=== PATIENT | female | born 1985 | race Caucasian/White ===

== ENCOUNTER 2022-10-10 09:00 | Outpatient (RCR) | payer OTHER, SELFPAY | END 2023-05-17 23:59 | disposition home or self-care (01) | PROVIDERS: PCP Family Medicine; Visit Provider Family Medicine | DX: M79.672 Pain in left foot (principal); M24.875 Other specific joint derangements left foot, not elsewhere classified; Z51.89 Encounter for other specified aftercare | CPT/HCPCS: 97140; 97161 ==

== ENCOUNTER 2022-10-18 19:20 | Outpatient (CLI) | payer OTHER, SELFPAY ==
[2022-10-18 11:54] LABS: Hemoglobin A1C* 5.3 % (0-5.6)
[2022-10-18 18:13] LABS: Albumin* 4.7 g/dL (3.3-5.0)
[2022-10-18 18:16] LABS: Alkaline Phosphatase* 49 U/L (40-150); Aspartate Amino Transferase* 25 U/L (12-35); Bilirubin Direct* 0.2 mg/dL (0.0-0.5); Bilirubin Total* 1.1 mg/dL (0.1-1.5); Cholesterol* 191 mg/dL (90-199); HDL Cholesterol* 45 mg/dL (>=50); LDL Cholesterol Calculated 122 mg/dL (<100); Total Protein* 7.4 g/dL (6.0-8.3); Triglycerides* 121 mg/dL (40-149)
[2022-10-18 18:17] LABS: Alanine Aminotransferase* 20 U/L (4-35)
[2022-10-20 17:25] LABS: DHEAS 244 ug/dL (61-337)
[2022-10-20 19:46] LABS: Prolactin 3.8 ng/mL (2.8-29.2)
[2022-10-23 17:40] LABS: Sex Hormone Binding Globulin 25 nmol/L (25-122); Testosterone, Free LC-MS/MS 5.9 pg/mL (1.3-9.2); Testosterone, LC-MS/MS 31 ng/dL (9-55)
== END 2022-10-18 19:21 | disposition home or self-care (01) ==
PROVIDERS: PCP Family Medicine; Visit Provider Physician Assistant
DX: Z01.419 Encounter for gynecological examination (general) (routine) without abnormal findings (principal); N64.52 Nipple discharge; R10.10 Upper abdominal pain, unspecified; L68.0 Hirsutism; E66.9 Obesity, unspecified; F41.9 Anxiety disorder, unspecified; Z13.6 Encounter for screening for cardiovascular disorders; Z13.1 Encounter for screening for diabetes mellitus
CPT/HCPCS: 80061; 80076; 82627; 83036; 84146; 84270; 84402; 84403; 84443

== ENCOUNTER 2023-07-27 09:54 | Outpatient (CLI) | payer OTHER, SELFPAY | END 2023-07-27 09:55 | disposition home or self-care (01) | PROVIDERS: PCP Physician Assistant Medical; Visit Provider Physician Assistant | DX: L68.0 Hirsutism (principal) | CPT/HCPCS: 80048 ==

== ENCOUNTER 2023-08-31 10:23 | Outpatient (RCR) | payer OTHER, SELFPAY | END 2023-11-26 15:56 | disposition home or self-care (01) | PROVIDERS: PCP Physician Assistant Medical; Visit Provider Family Medicine | DX: M72.2 Plantar fascial fibromatosis (principal); M54.50 Low back pain, unspecified; M25.551 Pain in right hip; Z51.89 Encounter for other specified aftercare | CPT/HCPCS: 97110; 97162 ==

== ENCOUNTER 2023-09-07 09:59 | Outpatient (CLI) | payer OTHER, SELFPAY ==
--- NOTE | 2023-09-07 10:15 | CRLHL7_ITS ---
For Patients: As a result of the Cures Act, medical imaging exams and procedure reports are released immediately into your electronic medical record. You may view this report before your referring provider. If you have questions, please contact your health care provider. INDICATION: Vision changes. History of Chiari malformation. TECHNIQUE: Brain MRI without contrast. The following sequences were obtained: Sagittal T1 weighted sequence. DWI and ADC mapping sequences. Axial FLAIR and FILOMENA T2 weighted sequences. Susceptibility or GRE sequence. COMPARISON: Brain MRI from 09/20/2010. FINDINGS: No evidence of acute ischemia. No evidence of acute or chronic intracranial blood products. No pathologic intracranial signal abnormality. No mass effect or herniation. No hydrocephalus or extra-axial collections. The pituitary gland, parasellar structures and optic chiasm are normal. Slightly pointed cerebellar tonsils protrude 5-6 millimeters below the foramen magnum. Effacement of CSF at the foramen magnum. No mass effect upon the brainstem. All the major intracranial vascular structures demonstrate normal flow-related signal. The orbital contents are normal. No calvarial or skull base marrow replacing process. No obstructive sinus disease. No extracranial soft tissue findings. IMPRESSION: 1. Stable mild Chiari 1 malformation. Similar degree of tonsillar protrusion below the foramen magnum. No new mass effect upon the brainstem. No hydrocephalus. 2. No other significant intracranial pathology. Dictated by Bear Nava MD @ 09/07/2023 1:21:55 PM (Electronically Signed)
== END 2023-09-07 10:00 | disposition home or self-care (01) ==
PROVIDERS: PCP Physician Assistant; Visit Provider Physician Assistant
DX: H53.9 Unspecified visual disturbance (principal); Z86.69 Personal history of other diseases of the nervous system and sense organs
CPT/HCPCS: 70551

== ENCOUNTER 2023-10-09 09:00 | Outpatient (RCR) | payer OTHER, SELFPAY | END 2024-02-06 23:59 | disposition home or self-care (01) | PROVIDERS: PCP Physician Assistant; Visit Provider Physician Assistant | DX: N39.3 Stress incontinence (female) (male) (principal); M54.50 Low back pain, unspecified; M25.551 Pain in right hip; M72.2 Plantar fascial fibromatosis; M62.89 Other specified disorders of muscle; R29.898 Other symptoms and signs involving the musculoskeletal system; Z51.89 Encounter for other specified aftercare | CPT/HCPCS: 97110; 97140; 97162 ==

== ENCOUNTER 2023-10-19 18:59 | Emergency (ER) | payer OTHER, SELFPAY ==
[2023-10-19] VITALS (8 sets, daily range): BP systolic 109–126; BP diastolic 71–90; PULSE 72–87; RESP 22; TEMP 36.9; O2SAT 97–98; BMI 31.3
[2023-10-19] MEDS: 0.9 % SODIUM CHLORIDE 1000 ml 1,000 ML IV (20:05)
[2023-10-19] MEDS: ONDANSETRON 2 MG/ML inj 4 MG IVP (20:05)
[2023-10-19 20:27] LABS: Lactate* 0.7 mmol/L (0.5-1.9)
[2023-10-19 20:31] LABS: Basophils Absolute Auto 0.01 K/uL (0.00-0.30); Basophils Percent Auto 0.1 % (0.0-3.0); Eosinophils Absolute Auto 0.17 K/uL (0.00-0.50); Hematocrit 43.8 % (33.0-51.0); Hemoglobin* 15.1 gm/dL (12.0-16.0); Immature Granulocytes Abs Auto 0.03 K/uL (0.00-0.30); Immature Granulocytes Pct Auto 0.4 %; Lymphocytes Absolute Auto 1.72 K/uL (0.90-2.90); Lymphocytes Percent Auto 20.7 % (20-44); Mean Corpuscular HGB Conc 35 gm/dL (32-36); Mean Corpuscular Hemoglobin 29 pg (26-34); Mean Corpuscular Volume 84 fL (80-100); Monocytes Percent Auto 6.3 % (0.0-11.0); Neutrophils Absolute Auto 5.87 K/uL (1.7-7.0); Neutrophils Percent Auto 70.5 % (42.0-72.0); Platelet Count* 207 K/uL (140-440); RDW Coefficient of Variation % 11.7 % (11.5-15.5); Red Blood Count 5.19 m/uL (4.00-5.20); White Blood Count* 8.32 K/uL (4.50-11.00)
[2023-10-19 20:33] LABS: Albumin* 4.7 g/dL (3.3-5.0); Chloride* 102 mmol/L (96-114); Sodium* 135 mmol/L (135-149)
[2023-10-19 20:34] LABS: Potassium* 3.8 mmol/L (3.6-5.1)
[2023-10-19 20:36] LABS: Alkaline Phosphatase* 47 U/L (40-150); Amylase* 87 U/L (18-89); Anion Gap 11 mEq/L (7-15); Aspartate Amino Transferase* 20 U/L (12-35); Bilirubin Total* 1.5 mg/dL (0.1-1.5); Blood Urea Nitrogen* 16 mg/dL (5-24); Carbon Dioxide* 22 mmol/L (20-32); Creatinine* 0.8 mg/dL (0.5-1.5); Est. Creatinine Clearance* 94.54; Estimated Glomerular Filt Rate 98 ml/min; Glucose* 90 mg/dL (60-115); Total Protein* 7.9 g/dL (6.0-8.3)
[2023-10-19 20:37] LABS: Alanine Aminotransferase* 18 U/L (4-35); Calcium* 8.9 mg/dL (8.4-10.6)
[2023-10-19 20:38] LABS: Slide Review Reflex No
--- NOTE | 2023-10-19 20:44 | CRLHL7_ITS ---
For Patients: As a result of the Cures Act, medical imaging exams and procedure reports are released immediately into your electronic medical record. You may view this report before your referring provider. If you have questions, please contact your health care provider. INDICATION: Right upper quadrant pain. TECHNIQUE: Ultrasound abdomen limited. Sonographic images of the right upper quadrant were obtained using tirado-scale and color Doppler images. COMPARISON: CT abdomen/pelvis dated 03/09/2020 FINDINGS: Liver: Increased echogenicity of the liver parenchyma. The liver measures 16.1 cm. Bile ducts: Intrahepatic bile ducts are not dilated. The common bile duct measures 0.4 cm. Gallbladder: Gallbladder sludge. No significant gallbladder wall thickening, or pericholecystic fluid identified. Negative sonographic Clay`s sign. Pancreas: Pancreas is poorly visualized secondary to acoustic shadowing from overlying/adjacent bowel gas. Right kidney: The right kidney measures 10.8 cm in length. No renal calculi or significant hydronephrosis is identified. IMPRESSION: 1. Gallbladder sludge. No secondary signs of acute cholecystitis. 2. Increased echogenicity of the liver parenchyma, compatible with diffuse hepatic steatosis. Dictated by Mark Orozco MD @ 10/19/2023 10:00:43 PM (Electronically Signed)
--- NOTE | 2023-10-19 20:46 | ED_ITS ---
HPI - Abdominal Pain General Chief Complaint: Abdominal Pain Stated Complaint: Abdominal pain Time Seen by Provider: 10/19/23 20:22 History of Present Illness HPI narrative: Patient is a 38-year-old woman who presents with approximately 12 hours of right upper quadrant and periumbilical pain. She had worsening her symptoms when she ate a banana this afternoon. The pain seems to go through to her back. She has had no fevers no chills no night sweats no dysuria. She states she has had similar symptoms previously and had a negative CT scan the past. She has had no blood in her stool no reflux symptoms she did have some nausea and vomiting but that has resolved with hydration here in the emergency room. Patient states she is not . Related Data Previous Rx's Medication Instructions Recorded spironolactone 50 mg tablet 50 mg PO BID #60 tabs 07/27/23 Allergies Allergy/AdvReac Type Severity Reaction Status Date / Time latex Allergy Mild Rash Verified 07/27/23 09:26 Review of Systems Status of ROS Reports: 10 or more systems reviewed and unremarkable except as noted in History and below [facility] Medical History History of eating disorder ?Z86.59 - Personal history of other mental and behavioral disorders (ICD-10) Anxiety ?F41.9 - Anxiety disorder, unspecified (ICD-10) Depression ?F32.A - Depression, unspecified (ICD-10) Surgical History History of tonsillectomy and adenoidectomy ?Z90.89 - Acquired absence of other organs (ICD-10) History of third molar tooth extraction ?K08.409 - Partial loss of teeth, unspecified cause, unspecified class (ICD- 10) History of section ?Z98.891 - History of uterine scar from previous surgery (ICD-10) Family History Family/Other Breast cancer Kidney disease Alcohol dependence Mother Brain disorder High cholesterol Osteoporosis Anxiety Father Kidney disease High blood pressure High cholesterol Diabetes Thyroid disease Maternal Grandmother Neuroendocrine tumor 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 Non-smoker What is your current living situation?: I presently have a place to live Problems where you live: no known problems In the past 12 months, utilities in danger of being shut off: no In past 12 months, lack of transportation kept you from medical appts, meetings, work, or getting things needed for daily living: no How hard is it for you to pay for the very basics like food, housing, medical care, and heating: not very hard In the past 12 mos, have been you worried that your food would run out before you had money to buy more?: never true In the past 12 mos, the food you bought just didn't last and you didn't have money to buy more?: never true Smoking Status: Never smoker How often do you have a drink containing alcohol: monthly or less How often do you have six or more drinks on one occasion: Never AUDIT-C Alcohol total score: 1 Non-prescribed substance use: denies use How often does anyone, including family, friends and others, physically hurt you : never How often does anyone, including family, friends and others, insult or talk down to you: never How often does anyone, including family, friends and others, threaten you with harm: never How often does anyone, including family, friends and others, scream or curse at you: never Little interest or pleasure in doing things: not at all Feeling down, depressed, or hopeless: several days Exam Narrative: Exam Narrative: EXAM GENERAL: Patient appears comfortable and well. EYES: No scleral icterus. ENT: Tympanic membranes and oropharynx normal. THYROID: no thyroid nodules or thyromegaly. LYMPH: No supraclavicular or cervical lymphadenopathy. SKIN: Visible skin seen during exam normal or with benign process only. EXT: No dependent lower extremity pedal edema. HEART: Regular rate and rhythm with no murmurs, rubs, or gallops. LUNGS: Clear to auscultation bilaterally with no crackles or wheezes. ABD: Soft, non tender, non distended. PSYCH: Good eye contact, speech is not pressured. Const: Vital Signs, click to edit/add: Vital Signs - 24 hr 10/19/23 19:17 10/19/23 20:08 10/19/23 20:09 Temperature 98.4 F Pulse Rate 83 81 Pulse Rate [Right Radial] 87 Respiratory Rate 22 Blood Pressure 109/71 Blood Pressure [Ri ght Upper Arm] 126/90 H Pulse Oximetry 97 97 98 Oxygen Delivery Me thod Room Air Course Course ED Course: Patient seen examined. Normal saline given. Zofran given IV. I did review her CBC CMP amylase all normal. I did recommend CT of the abdomen pelvis which he declines. She is willing to have an ultrasound of her right upper quadrant which we will proceed with. Vital Signs Vital signs: Initial Vital Signs Temperature 98.4 F 10/19/23 19:17 Temperature Source Temporal Artery Scan 10/19/23 19:17 Pulse Rate 87 10/19/23 19:17 Pulse Rhythm Regular 10/19/23 19:17 Pulse Strength 3+ Normal 10/19/23 19:17 Respiratory Rate 22 10/19/23 19:17 Blood Pressure 126/90 H 10/19/23 19:17 Blood Pressure Mean 102 10/19/23 19:17 Blood Pressure Position Supine 10/19/23 19:17 Pulse Oximetry 97 10/19/23 19:17 Oxygen Delivery Method Room Air 10/19/23 19:17 Vital Signs Temperature 98.4 F 10/19/23 19:17 Pulse Rate 87 10/19/23 19:17 Respiratory Rate 22 10/19/23 19:17 Blood Pressure 126/90 H 10/19/23 19:17 Pulse Oximetry 97 10/19/23 19:17 Oxygen Delivery Method Room Air 10/19/23 19:17 Temperature 98.4 F 10/19/23 19:17 Pulse Rate 81 10/19/23 20:09 Respiratory Rate 22 10/19/23 19:17 Blood Pressure 109/71 10/19/23 20:08 Pulse Oximetry 98 10/19/23 20:09 Oxygen Delivery Method Room Air 10/19/23 19:17 Medications Administered Medications: Generic Name Dose Route Start Last Admin Trade Name Freq PRN Reason Stop Dose Admin Sodium Chloride 1,000 mls @ 1,000 mls/hr 10/19/23 20:25 10/19/23 21:13 0.9 % Sodium Chloride 1000 Ml IV 10/19/23 21:24 Infused .Q1H AURELIO Infusion Ondansetron HCl 4 mg 10/19/23 20:25 10/19/23 20:05 Ondansetron 2 Mg/Ml Inj IVP 10/19/23 20:26 4 mg ONCE ONE Administration MDM - Abdominal Pain MDM Narrative Medical decision making narrative: Patient is a 38-year-old woman who is prone to constipation comes in today with worsening symptoms. We did do laboratory studies which are stable. Ultrasound of the right upper quadrant shows no acute gallbladder issues but it significant constipation. Patient was treated with milk of magnesia verses mineral oil with the addition of MiraLax. She will follow-up with her primary physician as needed. Differential Diagnosis Differential diagnosis: Likely abdominal pain, acute appendicitis, calculus of kidney, constipation, diverticulitis, endometriosis, gastroenteritis and small bowel obstruction Lab Data Labs: Lab Results 10/19/23 10/19/23 Range/Units 19:15 19:50 WBC 8.32 (4.50-11.00) K/uL RBC 5.19 (4.00-5.20) m/uL Hgb 15.1 (12.0-16.0) gm/dL Hct 43.8 (33.0-51.0) % MCV 84 (80-100) fL MCH 29 (26-34) pg MCHC 35 (32-36) gm/dL RDW Coeff of Seda 11.7 (11.5-15.5) % Plt Count 207 (140-440) K/uL Neut % (Auto) 70.5 (42.0-72.0) % Lymph % (Auto) 20.7 (20-44) % [place] % (Auto) 6.3 (0.0-11.0) % Eos % (Auto) 2.0 (0.0-7.0) % Baso % (Auto) 0.1 (0.0-3.0) % Neut # (Auto) 5.87 (1.7-7.0) K/uL Lymph # (Auto) 1.72 (0.90-2.90) K/uL [place] # (Auto) 0.50 (0.00-0.90) K/UL Eos # (Auto) 0.17 (0.00-0.50) K/uL Baso # (Auto) 0.01 (0.00-0.30) K/uL Abs Immat Gran (auto) 0.03 (0.00-0.30) K/uL Imm/Tot Granulo (auto) 0.4 % Sodium 135 (135-149) mmol/L Potassium 3.8 (3.6-5.1) mmol/L Chloride 102 (96-114) mmol/L Carbon Dioxide 22 (20-32) mmol/L Anion Gap 11 (7-15) mEq/L BUN 16 (5-24) mg/dL Creatinine 0.8 (0.5-1.5) mg/dL Estimated Creat Clear 94.54 Estimated GFR 98 ml/min Glucose 90 (60-115) mg/dL Lactate 0.7 (0.5-1.9) mmol/L Calcium 8.9 (8.4-10.6) mg/dL Total Bilirubin 1.5 (0.1-1.5) mg/dL AST 20 (12-35) U/L ALT 18 (4-35) U/L Alkaline Phosphatase 47 (40-150) U/L Total Protein 7.9 (6.0-8.3) g/dL Albumin 4.7 (3.3-5.0) g/dL Amylase 87 (18-89) U/L Discharge Plan Discharge Clinical Impression: Abdominal pain Patient Disposition: Home, Self-Care Condition: Stable Instructions: Abdominal Pain (ED) Additional Instructions: Mineral oil verses milk of magnesia MiraLax Follow-up as needed Activity Level: No Restrictions Discharge Diet: Regular Prescriptions: No Action spironolactone 50 mg tablet 50 mg PO BID Qty: 60 2RF Follow Up/Referrals: Aquiles Thayer PA-C [Primary Care Provider] - Stand Alone Forms: MyHealth Info Instructions
== END 2023-10-19 21:47 | disposition home or self-care (01) ==
PROVIDERS: Emergency Provider Internal Medicine; PCP Physician Assistant
DX: R10.11 Right upper quadrant pain (principal)
CPT/HCPCS: 36415; 76705; 80053; 82150; 83605; 85025; 96374; 99283; 99284; J2405; J7030

== ENCOUNTER 2024-02-15 09:39 | Outpatient (CLI) | payer OTHER, SELFPAY ==
--- NOTE | 2024-02-15 10:15 | MR_ITS ---
Patient: PHANI GOODMAN Facility:?[facility] Patient ID:?[id number] Site Patient ID:?[id number]. Site :?[id number] Study:?MRI-Spine Lumbar W/O-02/15/2024 10:32:06 AM Ordering Physician:?MARLENY COLON Final Report: INDICATION: Lumbar radiculopathy. TECHNIQUE: Multiplanar multisequence noncontrast MR images of the lumbar spine. COMPARISON None. FINDINGS: The lumbar lordosis is preserved. Mild leftward lumbar curvature. Vertebral body heights are maintained. No acute fracture or spondylolisthesis. No T1 hypointense lesions. Normal conus terminates at L1-2. T12-L1: No spinal canal or neural foraminal narrowing. L1-2: Mild disc degeneration. Small superiorly migrated right central disc extrusion measuring 5 mm in short axis. Mild spinal canal narrowing. No neural foraminal narrowing. L2-3: No spinal canal or neural foraminal narrowing. L3-4: Moderate disc degeneration. Mild disc height loss. Shallow broad-based right central disc protrusion. Mild facet arthropathy. Mild spinal canal narrowing. No neural foraminal narrowing. L4-5: Mild facet arthropathy. No spinal canal or neural foraminal narrowing. L5-S1: Mild facet arthropathy. No spinal canal or neural foraminal narrowing. IMPRESSION: 1. Multilevel lumbar spondylosis without spinal canal or neural foraminal stenosis. 2. At L1-2, superiorly migrated right central disc extrusion mildly narrows the spinal canal. 3. At L3-4, shallow broad-based right central disc protrusion contributes to mild spinal canal narrowing. Dictated by Satish Vieira MD @ 02/15/2024 1:06:16 PM Signed by:?Satish Vieira MD @02/15/2024 1:06:16 PM (Electronic Signature)
== END 2024-02-15 09:40 | disposition home or self-care (01) ==
LOC: MRI 09:42
PROVIDERS: Visit Provider Nurse Practitioner Family
DX: M54.16 Radiculopathy, lumbar region (principal); M47.896 Other spondylosis, lumbar region; M51.26 Other intervertebral disc displacement, lumbar region
CPT/HCPCS: 72148

== ENCOUNTER 2024-04-25 15:47 | Outpatient (CLI) | payer OTHER, SELFPAY | END 2024-04-25 15:48 | disposition home or self-care (01) | PROVIDERS: PCP Family Medicine; Visit Provider Family Medicine | DX: Z00.00 Encounter for general adult medical examination without abnormal findings (principal); E66.9 Obesity, unspecified; L65.9 Nonscarring hair loss, unspecified | CPT/HCPCS: 80053; 84443 ==

== ENCOUNTER 2024-09-23 11:20 | Outpatient (CLI) | payer OTHER, SELFPAY | END 2024-09-23 11:21 | disposition home or self-care (01) | PROVIDERS: PCP Family Medicine; Visit Provider Family Medicine | DX: E66.9 Obesity, unspecified (principal); F41.9 Anxiety disorder, unspecified; F32.A Depression, unspecified; Z13.6 Encounter for screening for cardiovascular disorders | CPT/HCPCS: 80053; 80061 ==

== ENCOUNTER 2025-01-09 10:43 | Outpatient (CLI) | payer BC, SELFPAY ==
[2025-01-09 16:01] LABS: Free T4 Free Thyroxine* 1.17 ng/dL (0.70-1.85)
[2025-01-10 10:10] LABS: Thyroid Peroxidase (TPO) Ab 0.7 IU/mL (0.0-9.0)
== END 2025-01-09 10:44 | disposition home or self-care (01) ==
LOC: NPINS 10:44
PROVIDERS: PCP Family Medicine; Visit Provider Dermatology
DX: L65.9 Nonscarring hair loss, unspecified (principal)
CPT/HCPCS: 84439; 84443; 86376

== ENCOUNTER 2025-09-22 08:54 | Outpatient (CLI) | payer BC, SELFPAY ==
[2025-09-22 13:03] LABS: Bacterial Vaginosis* Negative (Negative); Candida glab/krus NOT DETECTED (No Detected)
[2025-09-22 17:24] LABS: Lab Add On Test New Spec Needed
[2025-09-24 21:24] LABS: HPV Source Cervix
[2025-10-01 13:29] LABS: Pap Test Digital Imaging Done
== END 2025-09-22 08:55 | disposition home or self-care (01) ==
PROVIDERS: PCP Family Medicine; Visit Provider Physician Assistant
DX: N89.8 Other specified noninflammatory disorders of vagina (principal); Z12.4 Encounter for screening for malignant neoplasm of cervix; Z13.9 Encounter for screening, unspecified
CPT/HCPCS: 80061; 81513; 82947; 84443; 87109; 87481; 87624; 87625; 87661; 88141; 88142; 88175

== ENCOUNTER 2025-09-29 15:38 | Outpatient (CLI) | payer BC, SELFPAY ==
--- NOTE | 2025-09-29 16:00 | CRLHL7_ITS ---
For Patients: As a result of the Century Cures Act, medical imaging exams and procedure reports are released immediately into your electronic medical record. You may view this report before your referring provider. If you have questions, please contact your health care provider. Indication: HX OF PULMONARY NODULES Technique: Noncontrast CT chest Please note that all CT scans at this facility use dose modulation, iterative reconstruction, and/or weight-based dosing when appropriate to reduce radiation dose to as low as reasonably achievable. Comparison: Chest x-ray 09/17/2025 Findings: Noncalcified nodule left lower lobe measures 3.3 millimeters, 3/71. Calcified nodule within the right upper lobe measures 2.5 millimeters, 3/47. Additional calcified nodule right lower lobe measures 2.8 millimeters, 3/76. 2 millimeter calcified nodule within the right middle lobe, 3/57. 3 millimeter calcified nodule right lower lobe, 3/70. 3 millimeter calcified granuloma right lower lobe, 3/43. 2 millimeter calcified granuloma right upper lobe, 3/34. Densely calcified prevascular lymph node measures 1.7 cm. Sub cm calcified left hilar lymph nodes. Tiny calcified right hilar lymph nodes. Coarse calcifications in the spleen. No infiltrate or edema. No effusion or pneumothorax. No enlarged lymph nodes. No fracture. No intrinsic osseous lesion. Remainder of the upper abdomen is normal. Impression: Sequela of granulomatous disease with numerous small calcified pulmonary nodules and calcified intrathoracic lymph nodes. Associated calcified splenic granulomas. Please note that all CT scans at this facility use dose modulation, iterative reconstruction, and/or weight-based dosing when appropriate to reduce radiation dose to as low as reasonably achievable. Dictated by Vitaly Morales MD @ 09/30/2025 8:57:30 AM (Electronically Signed)
== END 2025-09-29 15:39 | disposition home or self-care (01) ==
LOC: CT 15:38
PROVIDERS: PCP Family Medicine; Visit Provider Family Medicine
DX: Z87.898 Personal history of other specified conditions (principal)
CPT/HCPCS: 71250

== ENCOUNTER 2025-10-06 09:33 | Outpatient (CLI) | payer BC, SELFPAY ==
--- NOTE | 2025-10-06 10:00 | CRLHL7_ITS ---
For Patients: As a result of the 21st Century Cures Act, medical imaging exams and procedure reports are released immediately into your electronic medical record. You may view this report before your referring provider. If you have questions, please contact your health care provider. INDICATION: 40-year-old woman with history of right upper quadrant abdominal pain. TECHNIQUE: 7.9 MCi Tc 99m Mebrofenin were administered intravenously and serial static images were obtained over the anterior abdomen over 60 minutes, demonstrating radiotracer uptake within the gallbladder and demonstrating tracer exiting into the small bowel. Subsequently, 1.7 Micrograms cholecystokinin was administered intravenously and the anterior abdomen was serially imaged with static views for another 30 minutes. COMPARISON: CT chest 09/29/2025. CT abdomen/pelvis 03/09/2023. FINDINGS: Initial 60 minutes images: There is normal radionuclide activity in the liver, common bile duct, gallbladder and small bowel. There is no evidence for cystic or common duct obstruction or intrinsic liver disease. After administration of cholecystokinin, minimal tracer is demonstrated exiting the gallbladder into the common bile duct and small bowel, with substantial residual tracer in the gallbladder. The gallbladder ejection fraction measures 24 %. Normal range for GB EF: Equal to or greater than 35%. IMPRESSION: 1. No evidence of cystic duct obstruction to support acute cholecystitis. No evidence of common bile duct obstruction. 2. Gallbladder ejection fraction measures 24 %, below normal limits. Findings are nonspecific, but can be seen with gallbladder dysfunction. Dictated by Vince Garcia MD @ 10/06/2025 12:44:01 PM (Electronically Signed)
== END 2025-10-06 09:34 | disposition home or self-care (01) ==
LOC: NM 09:33
PROVIDERS: PCP Family Medicine; Visit Provider Family Medicine
DX: R10.11 Right upper quadrant pain (principal)
CPT/HCPCS: 78227; A9537; J2805